=== PATIENT | female | born 1970 | race Caucasian/White ===

== ENCOUNTER 2017-03-05 13:02 | Observation (INO) ==
[2017-03-05] MEDS ORDERED: ASPIRIN PO STA (13:17)
[2017-03-05 13:28] LABS: MANUAL DIFF NEEDED? NO
[2017-03-05 13:35] LABS: BASO% 0.3 % (0.0-0.8); EOS# 0.07 X1000 (0.0-0.7); EOS% 0.7 % (0.0-10.0); HEMATOCRIT 38.6 % (37.0-47.0); HEMOGLOBIN 13.2 g/dL (12.0-16.0); IMM GRAN# 0.02 X1000 (0.0-0.04); IMM GRAN% 0.2 % (0.0-0.5); LYMPH# 3.13 X1000 (1.2-3.4); LYMPH% 33.3 % (20.5-51.1); MCH 31.3 PG (27-31); MCHC 34.2 g/dL (33-37); MCV 91.5 FL (81-99); MONO# 0.62 X1000 (0.11-0.59); MONO% 6.6 % (1.7-9.3); MPV 10.9 FL (7.4-10.4); NEUT% 58.9 % (42.2-75.2); PLT 214 X1000 (130-400); RBC 4.22 XMIL (4.2-5.4)
[2017-03-05 13:42] LABS: INR 1.01; PROTIME 10.6 Seconds (9.2-11.7); PTT 25.3 Seconds (22.0-36.0)
[2017-03-05 13:58] LABS: ALBUMIN 4.1 g/dL (3.5-5.0); CALCIUM 9.2 mg/dL (8.8-10.2); MAGNESIUM 2.2 mg/dL (1.5-2.7); POTASSIUM 3.8 mmol/L (3.5-5.1); TOTAL BILIRUBIN 0.18 mg/dL (0.20-1.00)
[2017-03-05] MEDS ORDERED: TYLENOL PO PRN (17:17)
[2017-03-05] MEDS ORDERED: LOVENOX SUBQ SCH (17:17)
[2017-03-05] MEDS ORDERED: ZOFRAN IV PRN (17:17)
[2017-03-05] MEDS ORDERED: NS 1,000 ML IV SCH (18:26)
[2017-03-05] MEDS ORDERED: PRAVACHOL PO SCH (21:00)
[2017-03-05] MEDS ORDERED: AMBIEN PO SCH (21:00)
[2017-03-06] MEDS: PRILOSEC PO SCH (06:01)
[2017-03-06 06:35] LABS: HEMATOCRIT 34.2 % (37.0-47.0); HEMOGLOBIN 11.5 g/dL (12.0-16.0); MCH 31.5 PG (27-31); MCHC 33.6 g/dL (33-37); MCV 93.7 FL (81-99); MPV 10.9 FL (7.4-10.4); RBC 3.65 XMIL (4.2-5.4)
[2017-03-06 06:59] LABS: AGAP 14; BUN 16 mg/dL (8-22); CALCIUM 8.6 mg/dL (8.8-10.2); CHLORIDE 111 mmol/L (98-107); COSMO 289; HDL 37 mg/dL (45-65); LDL 67 mg/dL; POTASSIUM 3.4 mmol/L (3.5-5.1); SODIUM 145 mmol/L (136-145); TCO2 20 mmol/L (25-35); TRIGLYCERIDES 280 mg/dL (35-135); VLDL 56 mg/dL
[2017-03-06] MEDS ORDERED: PRILOSEC PO SCH (07:00)
[2017-03-06] MEDS ORDERED: POTASSIUM CHLORIDE 20 MEQ/SWI 20 MEQ/100 ML IVPB IV SCH (08:00)
[2017-03-06] MEDS ORDERED: LEXISCAN ONE (08:17)
[2017-03-06] MEDS ORDERED: POTASSIUM CHLORIDE 40 MEQ in NS 250 ML IV ONE (08:30)
[2017-03-06] MEDS ORDERED: TOPAMAX PO SCH (09:00)
[2017-03-06] MEDS ORDERED: ASPIRIN PO SCH (09:00)
[2017-03-06 10:54] VITALS: BP 124/56
[2017-03-06] MEDS ORDERED: KLOR-CON PO ONE (14:09)
== END 2017-03-06 15:50 | disposition home or self-care (01) ==
LOC: 4N 13:02 → ED 13:02 → SUATTDRO 13:03
PROVIDERS: ATTEND Emergency Medicine